=== PATIENT | female | born 1955 | race Caucasian/White ===

== ENCOUNTER 2017-03-19 16:22 | Emergency (ER) | payer MEDICARE, OTHER ==
[~2017-03-19 16:22] MED LIST: ALTACE10 MG PO; AT25 PO; CELEXA10 PO; DULERA 200 MCG/13 GM INH; ESTRACE1 MG PO; FISH OIL1200 MG PO; FOLIC PO; HYZAAR 100/25 T1 TAB PO; INSNOVN SC; INSNOVR SC; LORTAB10 PO; MEDROLPAK4 PO; NEUR600 PO; PROVHFA INH; SEPTRA DS1 TAB PO; SURBEX-T1 TAB PO; TRAZ100 PO; ULTRAM50 PO; VITAMIN D1000 UNI1 PO; VITE PO
== END 2017-03-19 16:34 | disposition home or self-care (01) ==
LOC: ER 16:22
DX: M54.5 Low back pain (principal); G89.29 Other chronic pain; I10 Essential (primary) hypertension; J44.9 Chronic obstructive pulmonary disease, unspecified; Z86.19 Personal history of other infectious and parasitic diseases; E11.9 Type 2 diabetes mellitus without complications; F17.200 Nicotine dependence, unspecified, uncomplicated; Z88.0 Allergy status to penicillin; Z88.5 Allergy status to narcotic agent; Z88.6 Allergy status to analgesic agent; Z88.8 Allergy status to other drugs, medicaments and biological substances; Z79.899 Other long term (current) drug therapy; Z79.4 Long term (current) use of insulin
CPT/HCPCS: 99283